=== PATIENT | male | born 1930 | race Two or more races ===

== ENCOUNTER → 2020-03-09 | Outpatient (CLI) | payer MEDICARE, MEDICAID ==
[~2020-03-09] MED LIST: GABA300C10 PO; LOSA1TAB19 PO; METF500T17 PO; [UNRECOGNIZED DRUG - CODE] PO
[2020-03-09 09:33] LABS: BASOPHILS # (AUTO) 0.04 x10^3/uL (0-0.1); BASOPHILS % (AUTO) 0 % (0-1); EOSINOPHILS # (AUTO) 0.56 x10^3/uL (0-0.4); EOSINOPHILS % (AUTO) 5 % (1-7); LYMPHOCYTES # (AUTO) 3.29 x10^3/uL (1-3.4); LYMPHOCYTES % (AUTO) 31 % (22-44); MD NO; MEAN CORPUSCULAR HEMOGLOBIN 29.9 pg (27.5-34.5); MEAN CORPUSCULAR HGB CONC 32.2 g/dL (33.2-36.2); MEAN CORPUSCULAR VOLUME 92.6 fL (81-97); MEAN PLATELET VOLUME 7.9 fL (7.4-10.4); MONOCYTES # (AUTO) 0.96 x10^3/uL (0.2-0.8); MONOCYTES % (AUTO) 9 % (2-9); NEUTROPHILS # (AUTO) 5.62 x10^3/uL (1.8-6.8); NEUTROPHILS % (AUTO) 54 % (42-75); PLATELET COUNT 284 x10^3/uL (130-400); RED BLOOD COUNT 4.93 x10^6/uL (4.38-5.82); RED CELL DISTRIBUTION WIDTH 13.6 % (9.4-14.8)
[2020-03-09 09:37] LABS: C-REACTIVE PROTEIN, QUANT 0.1 mg/dL (0.02-0.49)
[2020-03-09 10:02] LABS: FOLATE LEVEL 9.8 ng/mL (3.1-17.5); PSA SCREEN 2.36 ng/mL (0.00-4.00)
[2020-03-09 10:17] LABS: HCT (SEDRATE) 45.6 % (39.2-51.8)
== END | disposition home or self-care (01) ==
LOC: RAD 08:53
PROVIDERS: ATTEND Psychiatry & Neurology Neurology
DX: Z12.5 Encounter for screening for malignant neoplasm of prostate (principal); M16.0 Bilateral primary osteoarthritis of hip; D51.8 Other vitamin B12 deficiency anemias
CPT/HCPCS: 36415; 73523; 82550; 82607; 82746; 82784; 84155; 84156; 84165; 84436; 84443; 84480; 84481; 85025; 85651; 86140; 86334; 86592; G0103